=== PATIENT | female | born 1955 | race Caucasian/White ===

== ENCOUNTER 2016-04-09 09:05 | Outpatient (RCR) | payer OTHER | END 2016-05-06 | disposition home or self-care (01) | LOC: PTY 09:05 | DX: M16.0 Bilateral primary osteoarthritis of hip (principal) ==

== ENCOUNTER 2016-05-07 10:00 | Outpatient (RCR) | payer OTHER | END 2016-06-03 | disposition home or self-care (01) | LOC: PTY 10:00 | DX: M16.0 Bilateral primary osteoarthritis of hip (principal) ==